=== PATIENT | female | born 1945 | race Two or more races ===

== ENCOUNTER 2025-05-23 09:57 | Observation (INO) | payer MEDICAID, SELFPAY ==
[2025-05-23] VITALS (10 sets, daily range): BP systolic 130–181; BP diastolic 73–101; PULSE 65–87; RESP 16–97; TEMP 36.4–37.1; O2SAT 96–98; BMI 14.7
--- NOTE | 2025-05-23 10:01 | EKG_ITS ---
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
--- NOTE | 2025-05-23 10:22 | XR_ITS ---
Examination: PA lateral chest 2 views Technique: Upright PA lateral chest 2 views Date and time: May 23, 2025, 10:51 AM, comparison April 10, 2022 Indications: Chest pain shortness of breath beginning 3 days ago. Findings: Interval extensive bilateral interstitial alveolar lung opacities The left ventricle is mildly enlarged. Ectatic thoracic aorta. Prominent osteopenia Impression: Interval extensive bilateral interstitial alveolar lung opacities, differential would include pneumonia, underlying pulmonary metastatic disease not excluded Consider elective CT chest post intravenous contrast follow-up
--- NOTE | 2025-05-23 10:23 | EDRME_ITS ---
Rapid Medical Screening Exam E Arrival date/time: 05/23/25 09:57 Chief Complaint: Chest Pain Time Seen by Provider: 05/23/25 10:13 Vital signs: Vital Signs Temperature 97.7 F 05/23/25 10:06 Pulse Rate 80 05/23/25 10:06 Respiratory Rate 19 05/23/25 10:06 Blood Pressure 143/92 H 05/23/25 10:06 Pulse Oximetry (%) 96 05/23/25 10:06 Oxygen Delivery Method Room Air 05/23/25 10:06 [facility] Narrative: 80-year-old female here for chest pain that began a few days ago. States 3 days ago was at [facility] emergency department but states they did not keep her. Her chest pain has not gone away. Describes her chest pain as radiating to her back. Does have a history of diabetes. No history of [place] or stroke in the past.
--- NOTE | 2025-05-23 11:02 | EDNOTE_ITS ---
<Statement entered by Taylor Edward MD - 05/23/25 14:57> I, Taylor Edward MD, have reviewed the history, exam, and assessment of the patient. I have evaluated the patient independently and agree with the plan of care documented by [ ]. All diagnostic studies were reviewed and discussed. I confirm the diagnosis as documented by the Resident. I was present during the Medical Decision Making for this patient. The patient's plan of care was created between myself and the Resident and consistent with our discussion of the patient's case. ED Chest Pain RME/HPI General Chief Complaint: Chest Pain Stated Complaint: PAIN ON THE HEART Time Seen by Provider: 05/23/25 10:13 Arrival date/time: 05/23/25 09:57 RME / HPI RME / HPI narrative: 80-year-old female here for chest pain that began a few days ago. States 3 days ago was at [facility] emergency department but states they did not keep her. Her chest pain has not gone away. Describes her chest pain as radiating to her back. Does have a history of diabetes. No history of [place] or stroke in the past. Ms. Kirkland is a 80-year-old female with past medical history of hypertension hyperlipidemia and diabetes mellitus who presented to [facility] emergency department on May 23, 2025 with a chief complaint of chest pain. Patient on evaluation in the ED reported that her pain is mostly localized on the left side of her chest, more on the back and describes it as lung pain, patient's movements stable, O2 sat greater than 92 on room air. She does complain of some shortness of breath, reports that it is hard for her to breathe, denies any orthopnea, PND and leg swelling. Patient is cachectic and frail, on review of chest x-ray from 2021 shows deviation of trachea due to suspicion of enlarged right thyroid lobe, 18 mm nodule in right upper lobe, patient's family reported that they never followed up for the findings. Patient otherwise denies any other symptoms like headache, abdominal pain, nausea, vomiting, diarrhea and constipation Related Data Previous Rx's ?Medication ?Instructions ?Recorded magnesium citrate 150 ml PO QDAY PRN constipat ion 04/10/22 #296 mL Allergies Allergy/AdvReac Type Severity Reaction Status Date / Time No Known Allergies Allergy Verified 05/23/25 10:00 Review of Systems Review of Systems Systems Reviewed: All systems reviewed, normal except as documented Past Medical History Past Medical History Comments PMH COMMENT: PMH: As Above PSHx: Denies Allergies: No known drug and food allergies Social history: Positive for wooden stove exposure in [place] -Smoking: Denies -Alcohol Use: Denies -Illicit Drug Use: Denies -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 Cachectic elderly and frail. HEENT: Normocephalic, atraumatic, mucous membranes moist. Heart: Regular rate and rhythm, no murmurs. Lungs: Bilateral crackles Abdomen: Soft, nondistended, nontender, positive bowel sounds. ?No guarding or rebound tenderness. Neurologic: Alert and oriented x3, no gross neurological deficit, and patient able to move all 4 extremities. Extremities: No edema. Skin: No rash or ecchymoses. Course Course Course Narrative: EKG reviewed shows sinus rhythm, QTc 397. Chest x-ray shows interval extensive bilateral interstitial alveolar lung opacities CBC shows WBC 5.1, hemoglobin 13.7, hematocrit 40.2, platelet 870 VBG shows pH 7.48, pCO2 33, pO2 127 CMP remarkable for sodium 138, potassium 4.1, bicarb 24.8, GFR greater than 60, corrected calcium 11, lactate 0.9, AST ALT within normal limits, BNP 193, Pro- Loco 0.08 Urinalysis showed 10 RBC negative for bacteria Patient started on IV maintenance fluid for hypercalcemia CTA chest shows marked right thyromegaly displacing the trachea to the left extending substernal multiple right thyroid nodules Right tracheobronchial lymphadenopathy, noncalcified pulmonary nodules 10 mm nodule left upper lobe, 8 mm nodule left upper lobe, 6 mm nodule left upper lobe COPD, diffuse bilateral pneumonia, bronchiectasis in lower lung zones and suspicion of mild heart failure CT soft tissue neck shows markedly enlarged right thyroid lobe extending chase bsternally Patient's PSI port score 102 risk class IV 8.2 to 9.3% mortality recommended hospitalization. Patient given cefepime 2 g x 1 and doxycycline 100 mg x 1 Case discussed with hospitalist team for admission for IV antibiotics for pneumonia and further oncological workup as warranted, hospitalist agrees to admit patient. 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 Q4H START 00 Care 05/23/25 10:34 Active Continuous Pulse Oximetry NOW Care 05/23/25 10:34 Active Decision to Admit X1 Care 05/23/25 13:57 Active EKG (ED ONLY) *Do not use* NOW Care 05/23/25 10:01 Completed Fingerstick [Bedside Blood Glucose] NOW Care 05/23/25 10:33 Active Insert IV NOW Care 05/23/25 10:[address] angio chest Stat Exams 05/23/25 11:[address] soft tissue neck w con Stat Exams 05/23/25 11:39 Completed EKG (ED Only) Stat Exams 05/23/25 10:01 Draft XR chest 2V Stat Exams 05/23/25 10:22 Completed BNP [B-Type Natriuretic Peptide] Stat Lab 05/23/25 11:08 Completed Beta Hydroxybutyrate Stat Lab 05/23/25 11:08 Completed Blood Culture (Lab) Stat Lab 05/23/25 13:09 Received CBC Stat Lab 05/23/25 11:08 Completed CMP [Comprehensive Metabolic Panel] Stat Lab 05/23/25 11:08 Completed Lactic Acid [Lactate (Lactic Acid)] Stat Lab 05/23/25 11:08 Completed Procalcitonin Stat Lab 05/23/25 11:08 Completed Troponin I Stat Lab 05/23/25 11:08 Completed UA, C/S IF [Urinalysis, C/S if Indicated] Stat Lab 05/23/25 12:05 Completed VBG [Venous Blood Gas] Stat Lab 05/23/25 11:08 Completed Aspirin Med 05/23/25 10:22 Discontinued 325 mg PO X1 ONE Cefepime Inj [Maxipime Inj] 2 gm Med 05/23/25 13:56 Active SODIUM CHLORIDE 0.9% (Popper) [Ns 0.9% (P)] 50 ml IV X1 Doxycycline Inj [Vibramycin Inj] 100 mg Med 05/23/25 13:56 Active Sodium Chloride 0.9% (Pop) [NS 0.9% mini bag] 100 ml IV X1 Sodium Chloride 0.9% 1000 ml [Ns] 1,000 ml Med 05/23/25 11:41 Active IV 75 mls/hr Vital Signs Vital signs: Vital Signs Temperature 97.7 F 05/23/25 10:06 Pulse Rate 80 05/23/25 10:06 Respiratory Rate 19 05/23/25 10:06 Blood Pressure 143/92 H 05/23/25 10:06 Pulse Oximetry (%) 96 05/23/25 10:06 Oxygen Delivery Method Room Air 05/23/25 10:06 Chest Pain MDM Narrative MDM Narrative:: # Community Acquired PNA # Thyromegaly, suspicion of malignancy # Hypercalcemia, suspicion of hypercalcemia of malignancy # Severe protein calorie malnutrition, failure to thrive Patient data External records reviewed:: [facility] previous records Clinical information provided by:: patient and family Social determinants that could affect healthcare access:: none Patient has the following chronic illnesses:: Hypertension, hyperlipidemia and diabetes How is presenting disease/condition affected by chronic disease/condition?: exacerbated by Evaluation data The following diagnostics were reviewed and interpreted by me:: lab results, radiology exam(s) and EKG tracing(s) Lab and/or radiology exams considered but not ordered:: None Interpretation Summary: EKG reviewed shows sinus rhythm, QTc 397. Chest x-ray shows interval extensive bilateral interstitial alveolar lung opacities CBC shows WBC 5.1, hemoglobin 13.7, hematocrit 40.2, platelet 870 VBG shows pH 7.48, pCO2 33, pO2 127 CMP remarkable for sodium 138, potassium 4.1, bicarb 24.8, GFR greater than 60, corrected calcium 11, lactate 0.9, AST ALT within normal limits, BNP 193, Pro-Ca l 0.08 Urinalysis showed 10 RBC negative for bacteria Patient started on IV maintenance fluid for hypercalcemia CTA chest shows marked right thyromegaly displacing the trachea to the left extending substernal multiple right thyroid nodules Right tracheobronchial lymphadenopathy, noncalcified pulmonary nodules 10 mm nodule left upper lobe, 8 mm nodule left upper lobe, 6 mm nodule left upper lobe COPD, diffuse bilateral pneumonia, bronchiectasis in lower lung zones and suspicion of mild heart failure CT soft tissue neck shows markedly enlarged right thyroid lobe extending substernally Medications / Prescriptions Medications or Prescriptions considered but not ordered:: None Medication administrations:: Medication Administration History Sodium Chloride (Ns) 1,000 mls @ 75 mls/hr IV .[id number] BRIANA Stop: 06/22/25 11:40 Last Admin: 05/23/25 12:02 Dose: 75 mls/hr Documented By: RACHEL Cefepime HCl 2 gm/ Sodium (Chloride) 50 mls @ 100 mls/hr IV X1 ONE Stop: 05/23/25 14:25 Doxycycline Hyclate 100 mg/ (Sodium Chloride) 100 mls @ 100 mls/hr IV X1 ONE Stop: 05/23/25 14:55 Discontinued Medications Aspirin (Aspirin 325 Mg Tablet) 325 mg PO X1 ONE Stop: 05/23/25 10:23 Last Admin: 05/23/25 10:33 Dose: 325 mg Documented By: TM As Above Consultations Consultation(s) initiated? (list below): No Diagnosis Chest Pain Differential Diagnosis: atypical chest pain, costochondritis and other Most likely diagnosis given after review of the tests above:: Pneumonia Admission Indicated Admission indicated?: indicated Admission Request Was there a request for admission?: Yes Admission Attestation Admission request attestation: Discussed case with Dr Elmore from Hospitalist service regarding admission. Discussed patients ED course, exam findings, labs, and radiology results. The Hospitalist agrees to accept the patient for admission. Disposition Plan Disposition Plan: Admit Discharge Plan Plan Patient Disposition: Admit Acute Care w/in Hospital Prescriptions/Referrals Prescriptions/Med Rec: No Action magnesium citrate Solution 150 ml PO QDAY PRN (Reason: constipation) Qty: 296 0RF Referrals: No Primary/Family,Physician [Primary Care Provider] - In 1 week Problem List Clinical Impression: PNA (pneumonia) Patient/Caregiver Discharge Instructions Print Language: [place] Stand Alone Forms: [facility] Award Info., Patient Portal Info Letter
[2025-05-23 11:13] LABS: Lactate (Lactic Acid) 0.9 mMol/L (0.4-2.0)
[2025-05-23 11:14] LABS: Base Excess, Venous 2 (-3-3); O2 Saturation, Venous 100 % (96-97); PCO2, Venous 33 mmHg (36-56); PO2, Venous 127 mmHg (15-58); pH, Venous 7.48 (7.33-7.66)
[2025-05-23 11:18] LABS: Beta Hydroxybutyrate 0.2 mmol/L (<0.6)
[2025-05-23 11:24] LABS: Basophils # (Auto) 0.0 Thou/mm3 (0.0-0.2); Basophils % (Auto) 0 % (0-2.5); Eosinophils # (Auto) 0.3 Thou/mm3 (0.0-0.5); Eosinophils % (Auto) 5 % (0-10); Hematocrit 40.2 % (36.0-46.0); Hemoglobin 13.7 g/dL (12.0-16.0); Immature Granulocytes Auto 0.01 Thou/mm3 (0.00-0.00); Lymphocytes # (Auto) 1.4 Thou/mm3 (1.0-4.8); Lymphocytes % (Auto) 27 % (10-50); Mean Corpuscular HGB Conc 34.1 g/dl (31.0-37.0); Mean Corpuscular Hemoglobin 29.3 pg (25.0-35.0); Mean Corpuscular Volume 86 fL (80-100); Monocytes # (Auto) 0.4 Thou/mm3 (0.0-0.8); Monocytes % (Auto) 8 % (0-12); Neutrophils # (Auto) 3.0 Thou/mm3 (1.8-7.7); Neutrophils % (Auto) 60 % (37-80); Nucleated Red Blood Cell # 0.00 Thou/mm3 (0.00-0.00); Nucleated Red Blood Cell % 0 /100 WBC (0); Platelet Count 170 Thou/mm3 (140-440); RDW Standard Deviation 52.3 fL (36.4-46.3); Red Blood Count 4.68 Miln/mm3 (4.00-5.20); White Blood Count 5.1 Thou/mm3 (3.6-11.0)
[2025-05-23 11:38] LABS: Alanine Aminotransferase 12 U/L (10-49); Albumin, Serum 4.2 gm/dL (3.4-4.8); Albumin/Globulin Ratio 1.5 (1.2-2.2); Alkaline Phosphatase 136 U/L (46-116); Anion Gap 10 (7-16); Aspartate Amino Transferase 26 U/L (0-34); BUN/Creatinine Ratio 28 Ratio (12-20); Bilirubin,Total 0.7 mg/dL (0.3-1.2); Blood Urea Nitrogen 17 mg/dL (9-23); Calcium 11.0 mg/dL (8.3-10.6); Calcium (Corrected) 11.0 mg/dL (8.5-10.1); Carbon Dioxide 24.8 mMol/L (20.0-31.0); Chloride 103 mMol/L (98-107); Creatinine (Component) 0.6 mg/dL (0.6-1.3); Estimated Creatinine Clearance 41.7 mL/min (>60); Globulin 2.8 gm/dL (2.3-3.5); Glucose 94 mg/dL (74-106); Osmolality,Calculated 277 (275-295); Potassium 4.1 mMol/L (3.4-5.1); Sodium 138 mMol/L (136-145); Total Protein 7.0 gm/dL (5.7-8.2); Troponin I < 0.020 ng/mL (0.0-0.045); eGFR > 60 See Note
--- NOTE | 2025-05-23 11:39 | XR_ITS ---
Examination: CT soft tissue neck, with intravenous contrast. 2-D coronal reconstructions. 2-D sagittal reconstructions. Date and time of exam :May 23, 2025, 1233 hrs. Indications: Again pain this week. CTDI: vol (mGy):16.6 DLP: (mGycm):219 Technique: 1.25 mm axial sections of the neck of the obtained. Coronal and sagittal reconstructions have been obtained. Intravenous contrast administered 40 cc Isovue-370. Low dose protocols were performed. One or more of the following dose reduction techniques were used; automated exposure control, adjustment of the mA and/or KV according to patient size, use of iterative reconstruction technique. Findings: The optic globes are intact 19 mm retention cyst left maxillary antrum Symmetrical nasopharynx oropharynx There is prominent patient motion which severely degrades image quality,. The larynx is severely distorted Markedly enlarged right thyroid lobe is extending substernal with multiple poorly defined nodules, the thyroid displacing the trachea to the left Normal epiglottis Impression: Prominent patient motion severely degrades scan image quality Markedly enlarged right thyroid lobe extending substernal with multiple poorly defined nodules Recommend dedicated thyroid sonography follow-up
--- NOTE | 2025-05-23 11:39 | XR_ITS ---
Examination: CTA chest with intravenous contrast 2-D reconstructions 3-D reconstructions, vascular Date and time of exam: May 23, 2025, 1233 hrs. Indications: Chest pain congestion beginning 4 days ago CTDI: vol (mGy) 9.08 DLP: (mGycm) 225 Technique: Multiple axial sections of the thorax have been obtained. 3 mm slice thickness, from below the hemidiaphragms to above the apices of the lungs. Mediastinal and lung density settings have been obtained. 2-D sagittal and coronal reconstructions. 3-D angiographic renderings, 3-D volume renderings, 3D post processing, vascular maximum intensity projections obtained. Contrast administered is 70 cc Isovue-370 intravenous. Low dose protocols were performed. One or more of the following dose reduction techniques were used; automated exposure control, adjustment of the mA and/or KV according to patient size, use of iterative reconstruction technique. Findings: Markedly enlarged right thyroid lobe extending substernal, displacing the trachea to the left, multiple right thyroid nodules No thoracic aortic aneurysm dilatation or dissection Pulmonary artery segments are not enlarged Pulmonary artery opacification is poor in segmental branches, no gross pulmonary artery filling defects Mild enlargement cardiac contour Right tracheobronchial lymphadenopathy, axial image 69, measuring 24 mm Numerous collateral venous channels in the right arm and right axilla COPD with severe areas of airspace destruction 10 mm nodule left upper lobe 8mm nodule left upper lobe 6 mm nodule left upper lobe Interstitial nodular disease throughout the lungs consistent with pneumonia with dilated bronchi in the lower lung zones and significant vascular congestion No visualized liver or splenic lesion Kidneys partially visualized no hydronephrosis Moderate osteopenia Impression: Marked right thyromegaly, displacing the trachea to the left, extending substernal, multiple right thyroid nodules, recommend dedicated thyroid sonography follow-up Pulmonary artery opacification is poor in segmental branches, no gross pulmonary artery filling defects Right tracheobronchial lymphadenopathy, 24 mm, noncalcified pulmonary nodules as above, follow-up is needed COPD Diffuse bilateral pneumonia Bronchiectasis in the lower lung zones Suspicious for mild associated heart failure
[2025-05-23] MEDS: SODIUM CHLORIDE 0.9% 1000 ML 1,000 ML 75 ML IV (12:02)
[2025-05-23 12:06] LABS: B-Type Natriuretic Peptide 193 pg/mL (0-100)
[2025-05-23 12:22] LABS: Collection Type, Urine Clean Catch
[2025-05-23 12:27] LABS: Bilirubin,Urine Negative (Negative); Blood,Urine Negative (Negative); Clarity,Urine Clear (Clear/Hazy); Color,Urine Lt-Yellow (Lt Yel-Yel); Culture Indicated,Urine Not Indicated; Glucose, Urine Negative (Negative); Ketones,Urine Negative (Negative); Leukocyte Esterase,Urine Negative (Negative); Nitrite,Urine Negative (Negative); PH,Urine 7.0 (5.0-7.0); Protein,Urine Negative (Neg - Trace); RBC,Urine 10 /hpf (0-3); Specific Gravity,Urine 1.012 (1.001-1.035); Squamous Epithelial Cell,Urine < 1 /hpf (0-5); Urobilinogen,Urine Negative mg/dL (0.0-1.0); WBC,Urine 1 /hpf (0-5)
[2025-05-23 12:41] LABS: Procalcitonin 0.08 ng/ml (0.0-0.49)
[2025-05-23] MEDS: CEFEPIME INJ 2 GM in SODIUM CHLORIDE 0.9% (Popper) 50 ML IV (14:36)
[2025-05-23] MEDS: DOXYCYCLINE INJ 100 MG in SODIUM CHLORIDE 0.9% (POP) 100 ML IV (14:37)
--- NOTE | 2025-05-23 15:38 | ESHP_ITS ---
Documentation for date of: 05/23/25 [facility] History of Present Illness Chief complaint: chest pain History of present illness: Kelsey Kirkland is 80 yr female with PMH of HTN and non insulin dependent T2DM presenting to [facility] on 05/23/25 with cheif complaint of chest pain. Her son was at bedside who assisted with history. Chest pain has been on and off going since the past couple months. Stated that today was the worst therefore family decided to bring in patient for further evaluation. She has been mostly residing in [place] and also had workup done for chest pain which was negative in the past while residing in [place]. Chest pain is midsternal, radiating to the back, pain 7/10, unable to describe type of pain, nothing to was taken [id number] for relief of the pain. She denies any shortness of breath, palpitations, diaphoresis. Does have epigastric pain with no diarrhea. Per family, patient does not have loss of appetite stating that she is eating well at her baseline. However patient does state that she is experiencing dysphagia. Denies any significant weight loss. In ED,Initial BP 143/92 however increased to 175/101. Other vitals are stable and she is saturating well on room air. Labs mostly unremarkable. Notable for mild hypercalcemia 11.0. She was started on fluids. EKG normal sinus rhythm, no acute ST changes, troponins negative. Chest x-ray showed significant pneumonia pattern bilaterally with infiltrates. CTA chest also showing diffuse bilateral pneumonia, bronchiectasis, thyromegaly with multiple nodules (10 mm, 8 mm, 6mm left upper lobe), tracheal deviation to the left. Follow up with CT of soft tissue neck showed nodules as well. She was given aspirin 325mg x1, NS maintainence fluids, cefepime x1, doxycyline x1. Admit for ACS r/o, workup of dysphagia, HTN urgency. PMH: as noted above PSH: son denied any FamHx: no CAD, no WA, no stroke. Daughter has history of unknown cancer. Social: Lives mostly in [place], no smoking, no drinking. Meds: Metformin and unknown anti hypertensive medications. Review of Systems Review of Systems Systems Reviewed: All systems reviewed, normal except as documented Exam Vital Signs Temp Pulse Resp BP Pulse Ox O2 Del Method 98.7 F 68 18 175/101 H 98 Room Air 05/23/25 14:04 05/23/25 14:04 05/23/25 14:04 05/23/25 14:04 05/23/25 14:04 05/23/25 14:04 Narrative Exam General: Elderly female, malnourished, No acute distress, cooperative HEENT: NCAT, No JVD noted. Mucosa moist. Pupils are equal and reactive to light bilaterally. Thyroid fullness appreciated, difficult to delineate. Cardiovascular: Normal S1 and S2. Regular rate and rhythm. Chest wall thin with visible rib outlines. Respiratory: Lungs are clear to auscultation bilaterally. No wheezing or crackles heard. Abdomen: Soft, nontender, not distended, normal bowel sounds. Skin: Warm to touch, dry, no rashes noted Musculoskeletal: No gross injuries. Able to move all 4 extremities. No pitting edema Neuro: Alert and oriented x3. No focal neuro deficits. Psych: Normal affect and mood Results: Labs 05/24/25 04:39 05/24/25 04:39 Labs: Short CBC 05/23/25 Range/Units 11:08 WBC 5.1 (3.6-11.0) Thou/mm3 Hgb 13.7 (12.0-16.0) g/dL Hct 40.2 (36.0-46.0) % Plt Count 170 (140-440) Thou/mm3 BMP 05/23/25 11:08 Sodium 138 Potassium 4.1 Chloride 103 Carbon Dioxide 24.8 BUN 17 Creatinine 0.6 Glucose 94 Calcium 11.0 H Cardiac Enzymes 05/23/25 Range/Units 11:08 Troponin I < 0.020 (0.0-0.045) ng/mL Liver Function 05/23/25 Range/Units 11:08 Total Bilirubin 0.7 (0.3-1.2) mg/dL AST 26 (0-34) U/L ALT 12 (10-49) U/L Alkaline Phosphatase 136 H (46-116) U/L Albumin 4.2 (3.4-4.8) gm/dL Urine 05/23/25 Range/Units 12:05 Urine Color Lt-Yellow (Lt Yel-Yel) Urine Clarity Clear (Clear/Hazy) Urine pH 7.0 (5.0-7.0) Ur Specific [place] 1.012 (1.001-1.035) Urine Protein Negative (Neg - Trace) Urine Glucose (UA) Negative (Negative) ABG Interpretation ABG results: 05/23/25 11:08 VBG pH 7.48 VBG pCO2 33 L VBG pO2 127 H VBG Base Excess 2 Quality Measures Quality Measures none Advance care planning discussed with:: patient and child Medications Home Medications and Allergies Home Medications ?Medication ?Instructions ?Recorded ?Confirmed ?Type telmisartan 40 mg tablet (Micardis) 40 mg PO QDAY 05/1105/23/25 History Allergies Allergy/AdvReac Type Severity Reaction Status Date / Time No Known Allergies Allergy Verified 05/23/25 10:00 Visit Medications Acetaminophen (Acetaminophen 325 Mg Tablet) 650 mg PO Q6H PRN PRN Reason: Fever >100.1 or pain Stop: 06/22/25 15:23 Dextrose (Dextrose 50%-Water Inj 50 Ml Syringe) 25 ml IV Q15MIN PRN PRN Reason: BG 50-70 responsive npo pt Stop: 06/22/25 15:29 Dextrose (Dextrose 50%-Water Inj 50 Ml Syringe) 50 ml IV Q15MIN PRN PRN Reason: BG <50 OR BG <70 & pt unresponsive Stop: 06/22/25 15:29 Glucagon (Glucagon Inj 1 Mg Vial) 1 mg IM Q15MIN PRN PRN Reason: BG <70, and no IV access Heparin Sodium (Porcine) (Heparin Sod Inj 5000 Unit/Ml Vial) 5,000 unit SC BID [facility] Stop: 06/06/25 20:59 Hydralazine HCl (Hydralazine Inj 20 Mg/Ml Vial) 10 mg IVP Q4HR PRN PRN Reason: SBP>160 Stop: 06/22/25 15:32 Sodium Chloride (Ns) 1,000 mls @ 75 mls/hr IV .[id number] [facility] Stop: 05/24/25 01:00 Last Admin: 05/23/25 12:02 Dose: 75 mls/hr Ceftriaxone Sodium/Dextrose (Rocephin/D5w 1gm Iv Premix) 1 gm in 50 mls @ 100 mls/hr IV QDAY [facility] Stop: 05/28/25 08:59 Insulin Human Lispro (Insulin Lispro (Admelog) 1 Unit/0.01 Ml Unit) 0 unit SC Q6HR [facility]; Protocol Stop: 06/22/25 17:59 Ondansetron HCl (Ondansetron Inj 2 Mg/Ml Inj 2 Ml) 4 mg IVP Q6H PRN; Protocol PRN Reason: NAUSEA OR VOMITING Stop: 06/22/25 15:23 Pantoprazole Sodium (Pantoprazole Inj 40 Mg Vial) 40 mg IVP QDAY BRIANA Stop: 06/22/25 15:29 Sennosides (Senna Tablet) 1 tab PO QDAY PRN; Protocol PRN Reason: constipation Stop: 06/22/25 15:23 Discontinued Medications Aspirin (Aspirin 325 Mg Tablet) 325 mg PO X1 ONE Stop: 05/23/25 10:23 Last Admin: 05/23/25 10:33 Dose: 325 mg Cefepime HCl 2 gm/ Sodium (Chloride) 50 mls @ 100 mls/hr IV X1 ONE Stop: 05/23/25 14:25 Last Admin: 05/23/25 14:36 Dose: 100 mls/hr Doxycycline Hyclate 100 mg/ (Sodium Chloride) 100 mls @ 100 mls/hr IV X1 ONE Stop: 05/23/25 14:55 Last Admin: 05/23/25 14:37 Dose: 100 mls/hr Assessment & Plan Plan Kelsey Kirkland is 80 yr female with PMH of HTN and non insulin dependent T2DM presenting to [facility] on 05/23/25 with cheif complaint of chest pain. Her son was at bedside who assisted with history. Chest pain has been on and off going since the past couple months. Also endorses dysphagia. Admit for ACS r/o, workup of dysphagia, HTN urgency. #ACS rule out In ED,Initial BP 143/92 however increased to 175/101. Other vitals are stable and she is saturating well on room air. EKG normal sinus rhythm, no acute ST changes, troponins negative. CXR extensive bilateral interstitial alveolar lung opacities. Given aspirin 325mg in ED. ? Continue aspirin 81 mg ? Trend troponins every 6 hours -IV morphine for pain #Hypertensive urgency #Hypertension Initial BP 143/92 however increased to 175/101. No signs of end organ damage. She has history of hypertension. Med rec is pending. -IV hydralazine 10 mg q4hr for SBP greater than 150. ? Monitor blood pressure ? Gradual reduction more than 15% as patient had presented with hypertensive urgency. - Will convert to p.o. agents once she is evaluated by speech #CAP Chest x-ray showed significant pneumonia pattern bilaterally with infiltrates. CTA chest also showing diffuse bilateral pneumonia. Currently stable on room air. No coughing. PSI score 72 (in patient or outpatient tx is okay). -IV ceftriaxone 1 g daily ( 05/23-) -blood cultures pending -duonebs PRN -oxygen PRN #Dysphagia 2/2 #Thyromegaly #BMI 19 or less, adult #Severe malnutrition Per family, patient does not have loss of appetite stating that she is eating well at her baseline. However patient does state that she is experiencing dysphagia. Possible that thyroid is also compressing on esphagus. Tracheal deviation noted on CTA chest and CXR. Patient's son stated that they were unaware of thyromegaly finding in the past. They would be interested in pursuing further workup including biopsy if needed. -speech language eval pending -box shook patcher referal -TSH pending -PTH pending -NPO until evaluation -IV fluids as below #Hypercalcemia Ca 11.0 on admission. Ddx: hyperparathyroidsim, Vit D intake. -NS maintainence fluids 75 cc/hr -repeat CMP #Non insulin dependent T2DM Glucose 94 on admission. She takes metformin at home that she got from [place]. (dose?) No A1c on file. -Bedside blood glucose checks q6hr while NPO -Insulin lispro sliding scale -Consulted box shook patcher -A1c pending Health maintenance: Dispo: tele for ACS rule out/dysphagia workup FEN: NPO pending swallow eval DVT prophylaxis: Subcu heparin BID CODE STATUS: Full code The patient's management plan was discussed with my attending physician Dr. Forte. Gissel Elmore, PGY-2 Attending Provider Attestation/Addendum I have discussed and was present for the essential components of the history, physical examination, diagnosis, and treatment plan with the resident. I agree with the patient's care as documented by the resident and amended herein by me. Sinan Forte DO. Although this document has been carefully reviewed, there may still be some phonetic and other typographical errors. These errors are purely grammatical due to imperfections in the software program and should not be construed in any way to compromise the substance of the patient's medical care during this visit.
[2025-05-23 16:10] LABS: Cardiac Risk Estimate 2.5 RATIO (3.7-5.6); Cholesterol 184 mg/dL (132-200); Free T4 (Free Thyroxine) 0.97 ng/dL (0.89-1.76); HDL Cholesterol 75 mg/dL (40-60); LDL Cholesterol,Calculated 91 mg/dL (0-130); Thyroid Stimulating Hormone 1.93 uIU/mL (0.55-4.78); Triglycerides 92 mg/dL (30-150)
[2025-05-23 16:48] LABS: Troponin I < 0.020 ng/mL (0.0-0.045)
[2025-05-23] MEDS: hydrALAZINE INJ 20 MG/ML VIAL 10 MG IVP (18:07)
[2025-05-23] MEDS: HEPARIN SOD INJ 5000 UNIT/ML VIAL SC (21:12)
[2025-05-23 22:51] LABS: Troponin I < 0.020 ng/mL (0.0-0.045)
[2025-05-24] VITALS: BP 110/65; PULSE 78; PULSE 81; RESP 19; TEMP 36.7; O2SAT 96
[2025-05-24] MEDS: INSULIN LISPRO (AdmeLOG) 1 UNIT/0.01 ML UNIT SC (00:35)
[2025-05-24 02:27] VITALS: PULSE 74; RESP 20; RESP 94
[2025-05-24 04:00] VITALS: BP 136/71; PULSE 66; PULSE 68; RESP 18; TEMP 37; O2SAT 96
[2025-05-24 05:32] LABS: Basophils # (Auto) 0.0 Thou/mm3 (0.0-0.2); Basophils % (Auto) 1 % (0-2.5); Eosinophils # (Auto) 0.1 Thou/mm3 (0.0-0.5); Eosinophils % (Auto) 3 % (0-10); Hematocrit 38.5 % (36.0-46.0); Hemoglobin 12.8 g/dL (12.0-16.0); Immature Granulocytes Auto 0.01 Thou/mm3 (0.00-0.00); Lymphocytes # (Auto) 1.3 Thou/mm3 (1.0-4.8); Lymphocytes % (Auto) 28 % (10-50); Mean Corpuscular HGB Conc 33.2 g/dl (31.0-37.0); Mean Corpuscular Hemoglobin 29.3 pg (25.0-35.0); Mean Corpuscular Volume 88 fL (80-100); Monocytes # (Auto) 0.6 Thou/mm3 (0.0-0.8); Monocytes % (Auto) 12 % (0-12); Neutrophils # (Auto) 2.5 Thou/mm3 (1.8-7.7); Neutrophils % (Auto) 55 % (37-80); Nucleated Red Blood Cell # 0.00 Thou/mm3 (0.00-0.00); Nucleated Red Blood Cell % 0 /100 WBC (0); Platelet Count 152 Thou/mm3 (140-440); RDW Standard Deviation 55.3 fL (36.4-46.3); Red Blood Count 4.37 Miln/mm3 (4.00-5.20); White Blood Count 4.4 Thou/mm3 (3.6-11.0)
[2025-05-24 06:00] VITALS: BMI 14.7
[2025-05-24 06:03] LABS: Glucose Estimated Average 108 mg/dL (80-131); Hemoglobin A1C 5.4 % Hgb (4.8-6.0)
[2025-05-24 06:26] LABS: Alanine Aminotransferase 10 U/L (10-49); Albumin, Serum 3.7 gm/dL (3.4-4.8); Albumin/Globulin Ratio 1.4 (1.2-2.2); Alkaline Phosphatase 121 U/L (46-116); Anion Gap 8 (7-16); Aspartate Amino Transferase 22 U/L (0-34); BUN/Creatinine Ratio 32 Ratio (12-20); Bilirubin,Total 0.6 mg/dL (0.3-1.2); Blood Urea Nitrogen 19 mg/dL (9-23); Calcium 11.0 mg/dL (8.3-10.6); Calcium (Corrected) 11.2 mg/dL (8.5-10.1); Carbon Dioxide 25.9 mMol/L (20.0-31.0); Chloride 106 mMol/L (98-107); Creatinine (Component) 0.6 mg/dL (0.6-1.3); Estimated Creatinine Clearance 41.7 mL/min (>60); Globulin 2.6 gm/dL (2.3-3.5); Glucose 75 mg/dL (74-106); Magnesium 1.8 mg/dL (1.6-2.6); Osmolality,Calculated 280 (275-295); Phosphorous 3.4 mg/dL (2.4-5.1); Potassium 4.0 mMol/L (3.4-5.1); Sodium 140 mMol/L (136-145); Thyroid Stimulating Hormone 1.79 uIU/mL (0.55-4.78); Total Protein 6.3 gm/dL (5.7-8.2); eGFR > 60 See Note
--- NOTE | 2025-05-24 07:21 | XR_ITS ---
Examination: Thyroid sonography complete Technique: Grayscale sonographic images thyroid lobes Indications: Large right thyroid with multiple nodules on CT examination 05/23/2025, difficulty swallowing this week Date and time: May 24, 2025, 10:00 AM Findings: Right thyroid 5.8 cm Upper pole nodule 2.7 x 2.5 cm Lower pole nodule 5.5 x 4.2 x 4.3 cm Left thyroid 3.0 cm No thyroid nodules Impression: 2 large vascular right thyroid nodules, consider ultrasound-guided fine-needle aspiration of both nodules
--- NOTE | 2025-05-24 07:36 | PD.RESPRO ---
Documentation for date of: 05/24/25 Exam Vital Signs Temp Pulse Resp BP Pulse Ox O2 Del Method 98.6 F 68 18 136/71 H 96 Room Air 05/24/25 04:00 05/24/25 04:00 05/24/25 04:00 05/24/25 04:00 05/24/25 04:00 05/24/25 04:00 Objective Labs 05/24/25 04:39 05/24/25 04:39 Labs: Laboratory Results - last 24 hr 05/23/25 05/23/25 05/23/25 11:08 12:05 16:23 WBC 5.1 RBC 4.68 Hgb 13.7 Hct 40.2 MCV 86 MCH 29.3 MCHC 34.1 RDW Std Deviation 52.3 H Plt Count 170 Neut % (Auto) 60 Lymph % (Auto) 27 [place] % (Auto) 8 Eos % (Auto) 5 Baso % (Auto) 0 Neut # (Auto) 3.0 Lymph # (Auto) 1.4 [place] # (Auto) 0.4 Eos # (Auto) 0.3 Baso # (Auto) 0.0 Immature Gran # (Auto) 0.01 H Absolute Nucleated RBC 0.00 Immature Gran % 0 Nucleated RBC % 0 VBG pH 7.48 VBG pCO2 33 L VBG pO2 127 H VBG O2 Sat (Anna) 100 H VBG Base Excess 2 Sodium 138 Potassium 4.1 Chloride 103 Carbon Dioxide 24.8 Anion Gap 10 BUN 17 Creatinine 0.6 Estim Creat Clear Calc 41.7 L eGFR > 60 BUN/Creatinine Ratio [address] H Glucose [address] Glu mg/dL Hemoglobin A1c Calculated Osmolality 277 Lactic Acid 0.9 Calcium 11.0 H Corrected Calcium 11.0 H Phosphorus Magnesium Total Bilirubin 0.7 AST 26 ALT 12 Alkaline Phosphatase 136 H Troponin I < 0.020 < 0.020 B-Natriuretic Peptide 193 H Total Protein 7.0 Albumin 4.2 Globulin 2.8 Albumin/Globulin Ratio 1.5 Triglycerides 92 Cholesterol 184 LDL Cholesterol, Calc 91 HDL Cholesterol 75 H Cholesterol/HDL Ratio 2.5 L Beta-Hydroxybutyrate/Acetoacetate 0.2 Procalcitonin 0.08 TSH 1.93 Free T4 0.97 Ur Collection Type Clean Catch Urine Color Lt-Yellow Urine Clarity Clear Urine pH 7.0 Ur Specific [place] 1.012 Urine Protein Negative Urine Glucose (UA) Negative Urine Ketones Negative Urine Blood Negative Urine Nitrite Negative Urine Bilirubin Negative Urine Urobilinogen (Auto) Negative Ur Leukocyte Esterase Negative Urine RBC 10 H Urine WBC 1 Ur Squamous Epith Cells < 1 Urine Bacteria None Ur Culture Indicated? Not Indicated 05/23/25 05/24/25 22:30 04:39 WBC 4.4 RBC 4.37 Hgb 12.8 Hct 38.5 MCV 88 MCH 29.3 MCHC 33.2 RDW Std Deviation 55.3 H Plt Count 152 Neut % (Auto) 55 Lymph % (Auto) 28 [place] % (Auto) 12 Eos % (Auto) 3 Baso % (Auto) 1 Neut # (Auto) 2.5 Lymph # (Auto) 1.3 [place] # (Auto) 0.6 Eos # (Auto) 0.1 Baso # (Auto) 0.0 Immature Gran # (Auto) 0.01 H Absolute Nucleated RBC 0.00 Immature Gran % 0 Nucleated RBC % 0 VBG pH VBG pCO2 VBG pO2 VBG O2 Sat (Anna) VBG Base Excess Sodium 140 Potassium 4.0 Chloride 106 Carbon Dioxide 25.9 Anion Gap 8 BUN 19 Creatinine 0.6 Estim Creat Clear Calc 41.7 L eGFR > 60 BUN/Creatinine Ratio 32 H Glucose [address] Glu mg/dL 108 Hemoglobin A1c 5.4 Calculated Osmolality 280 Lactic Acid Calcium 11.0 H Corrected Calcium 11.2 H Phosphorus 3.4 Magnesium 1.8 Total Bilirubin 0.6 AST 22 ALT 10 Alkaline Phosphatase 121 H Troponin I < 0.020 B-Natriuretic Peptide Total Protein 6.3 Albumin 3.7 D Globulin 2.6 Albumin/Globulin Ratio 1.4 Triglycerides Cholesterol LDL Cholesterol, Calc HDL Cholesterol Cholesterol/HDL Ratio Beta-Hydroxybutyrate/Acetoacetate Procalcitonin TSH 1.79 Free T4 Ur Collection Type Urine Color Urine Clarity Urine pH Ur Specific [place] Urine Protein Urine Glucose (UA) Urine Ketones Urine Blood Urine Nitrite Urine Bilirubin Urine Urobilinogen (Auto) Ur Leukocyte Esterase Urine RBC Urine WBC Ur Squamous Epith Cells Urine Bacteria Ur Culture Indicated? ABG Interpretation ABG results: 05/23/25 11:08 VBG pH 7.48 VBG pCO2 33 L VBG pO2 127 H VBG Base Excess 2 Quality Measures Quality Measures none Assessment & Plan Assessment Current Active Medications: Generic Name Dose Route Start Last Admin Trade Name Freq PRN Reason Stop Dose Admin Acetaminophen 650 mg 05/23/25 15:24 Acetaminophen 325 Mg Tablet PO 06/22/25 15:23 Q6H PRN Fever >100.1 or pain Dextrose 25 ml 05/23/25 15:30 Dextrose 50%-Water Inj 50 Ml Syringe IV 06/22/25 15:29 Q15MIN PRN BG 50-70 responsive npo pt Dextrose 50 ml 05/23/25 15:30 Dextrose 50%-Water Inj 50 Ml Syringe IV 06/22/25 15:29 Q15MIN PRN BG <50 OR BG <70 & pt unresponsive Glucagon 1 mg 05/23/25 15:30 Glucagon Inj 1 Mg Vial IM Q15MIN PRN BG <70, and no IV access Heparin Sodium (Porcine) 5,000 unit 05/23/25 21:00 05/23/25 21:12 Heparin Sod Inj 5000 Unit/Ml Vial SC 06/06/25 20:59 5,000 unit BID BRIANA Administration Hydralazine HCl 10 mg 05/23/25 15:33 05/23/25 18:07 Hydralazine Inj 20 Mg/Ml Vial IVP 06/22/25 15:32 10 mg Q4HR PRN Administration SBP>160 Ceftriaxone Sodium/Dextrose 1 gm in 50 mls @ 100 mls/hr 05/24/25 09:00 Rocephin/D5w 1gm Iv Premix IV 05/28/25 08:59 QDAY [facility] Magnesium Sulfate 4 gm in 50 mls @ 12.5 mls/hr 05/24/25 07:11 Magnesium Sulfate Ivpb IV 05/24/25 11:10 X1 ONE Sodium Chloride 1,000 mls @ 60 mls/hr 05/24/25 07:22 Ns IV 05/25/25 16:41 .[id number] [facility] Insulin Human Lispro 0 unit 05/23/25 18:00 05/24/25 05:47 Insulin Lispro (Admelog) 1 Unit/0.01 Ml Unit SC 06/22/25 17:59 Not Given Q6HR [facility] Protocol Ondansetron HCl 4 mg 05/23/25 15:24 Ondansetron Inj 2 Mg/Ml Inj 2 Ml IVP 06/22/25 15:23 Q6H PRN NAUSEA OR VOMITING Protocol Pantoprazole Sodium 40 mg 05/23/25 15:30 05/23/25 17:03 Pantoprazole Inj 40 Mg Vial IVP 06/22/25 15:29 40 mg QDAY BRIANA Administration Sennosides 1 tab 05/23/25 15:24 Senna Tablet PO 06/22/25 15:23 QDAY PRN constipation Protocol
[2025-05-24 08:00] VITALS: BP 138/79; PULSE 69; PULSE 82; RESP 17; TEMP 36.4; O2SAT 97
[2025-05-24] MEDS: cefTRIAXone/D5w 1gm IV premix 1 GM/50 ML BAG IV (08:21)
[2025-05-24] MEDS: HEPARIN SOD INJ 5000 UNIT/ML VIAL SC (08:21)
[2025-05-24] MEDS: Magnesium Sulfate 4 GM Ivpb 4 GM/50 ML BAG IV (08:23)
[2025-05-24] MEDS: SODIUM CHLORIDE 0.9% 1000 ML 1,000 ML 60 ML IV (08:23)
--- NOTE | 2025-05-24 10:54 | PC.SS ---
rounding note: Patient to d/c home today. No needs.
--- NOTE | 2025-05-24 11:06 | ESDS_ITS ---
<Statement entered by Gissel Elmore MD - 05/24/25 12:32> Note reviewed, I agree with most of its contents and agree with the patient's care as documented by Dr. Vigil. The patient's management plan was discussed with my attending physician Dr. Forte. Gissel Elmore, PGY-2 Planned Discharge Date 05/24/25 DS: Providers Provider Date of admission: 05/23/25 15:25 Primary care physician: Physician No Primary/Family Admitting Provider: Jared Forte DO Attending Provider on Admission: Jared Forte DO Consults: 05/23/25 15:29 Referral Speech Therapy Routine Comment: dysphagia Instructions: Patient has thyromegaly, tracheal deviation. Esophagus may be compressed 05/23/25 15:44 Referral Registered Dietitian Routine Comment: Instructions: BMI 14.7, swallow eval is pending for dysphagia assessment. Requesting recommendations for diet support. Thank you 05/23/25 16:00 Referral Physical Therapy Routine Comment: Physician Instructions: 05/24/25 08:30 Referral - INSTRUCTIONAL DESIGNER Vehicle Return Associate Routine Comment: swallow eval temo Banda Attending Provider on DC: Yuli Vigil MD Discharging Provider: Yuli Vigil MD DS: Diagnosis Problem List Completed Was Problem List Reviewed/Reconciled?: Yes Hospital Course Hospital Course Hospital course: Admitting Diagnoses: Chest pain, rule out acute coronary syndrome (ACS) Hypertensive urgency Community-acquired pneumonia Dysphagia Thyroid enlargement with nodules Chronic Conditions: Hypertension, 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 Pain was rated 7?8/10. She denied shortness of breath, palpitations, diaphoresis, or bowel changes. She did endorse intermittent epigastric pain and dysphagia, without significant weight loss, though BMI was 14. She had prior wo rkup in [place], reportedly negative. On presentation, blood pressure was elevated to 175/101 mmHg. She was saturating well on room air. Hospital Course Chest pain / ACS rule out: EKG showed normal sinus rhythm without ischemic changes. Serial troponins remained negative. She was given a loading dose of aspirin. Given negative biomarkers and stable course, ACS was ruled out. Hypertensive urgency: Blood pressure improved with supportive care. continue home temisartan for bp Pneumonia: Chest x-ray revealed bilateral pulmonary infiltrates. CTA confirmed diffuse bilateral pneumonia, bronchiectasis, and thyromegaly with tracheal deviation. She was started on IV cefepime and doxycycline, later transitioned to IV ceftriaxone. She improved clinically and was discharged on Augmentin BID x4 days and azithromycin 500 mg daily x3 days to complete antibiotic course. Dysphagia / thyroid findings: Swallow evaluation was performed and she tolerated a mechanical soft dysphagia diet. CT soft tissue of the neck showed enlarged right thyroid lobe with multiple irregular nodules and tracheal deviation. US thyroid 2 large vascular right thyroid nodules, consider ultrasound-guided fine-needle aspiration of both nodules Diabetes mellitus: While inpatient, HbA1c was 5.4%, reflecting overly tight glycemic control for her age and frailty. Metformin was discontinued. Continued monitoring and medication adjustment will be required with her outpatient providers in [place]. Other findings: Labs were notable for mild hypercalcemia (11 mg/dL), which improved with IV fluids. Her nutritional status remains poor (BMI 14), requiring outpatient dietary and nutrition follow-up. Discharge Condition Stable, tolerating diet, no acute chest pain, breathing comfortably on room air. Discharge Medications Augmentin 875-125 PO BID x4 days Azithromycin 500 mg PO daily x3 days continue telmisartan 40 mg po daily STOP taking metformin Follow-Up Primary care: Patient does not have a local PCP; she follows with physicians in [place]. Strongly encouraged to establish local primary care for coordination of care, particularly for diabetes, hypertension, and thyroid follow-up. Endocrinology: outpatient evaluation of thyroid nodules and thyromegaly and vascular nodules , needs fine needle biopsy Nutrition: soft and pureed foods, and continue ensure supplements Patient Education Counseled on completing antibiotics, monitoring for recurrent chest pain, dyspnea, fever, or worsening dysphagia. Advised low-salt diet for blood pressure control, adherence to adjusted diabetes regimen, and importance of establishing ongoing local care. Plan discussed with Dr. Elmore and Dr. Jann Vigil MD PGY1 Time Spent with Patient Time attestation: Total time spent providing and/or coordinating discharge services: Time spent: Greater than 30 minutes Exam Vital Signs Temp Pulse Resp BP Pulse Ox O2 Del Method 97.6 F 69 17 138/79 H 97 Room Air 05/24/25 08:00 05/24/25 08:00 05/24/25 08:00 05/24/25 08:00 05/24/25 08:00 05/24/25 08:00 Narrative Exam General: Elderly female, malnourished and frail , No acute distress, cooperative HEENT: NCAT, No JVD noted. Mucosa moist. Pupils are equal and reactive to light bilaterally. Thyroid fullness appreciated, difficult to delineate. very hard of hearing Cardiovascular: Normal S1 and S2. Regular rate and rhythm. Chest wall thin with visible rib outlines. Respiratory: Lungs with some crackles in bilateral bases Abdomen: Soft, nontender, not distended, normal bowel sounds. Skin: Warm to touch, dry, no rashes noted Musculoskeletal: No gross injuries. Able to move all 4 extremities. No pitting edema extremely frail Neuro: Alert and oriented x3. No focal neuro deficits. Psych: Normal affect and mood Discharge Plan Plan Patient Disposition: HOME (Self Care) Patient condition on transfer: Stable Prescriptions/Referrals Prescriptions/Med Rec: New amoxicillin-pot clavulanate 875-125 mg tablet 1 tab PO BID 4 Days Qty: 8 0RF azithromycin 500 mg tablet 500 mg PO QDAY 3 Days Qty: 3 0RF Continued magnesium citrate Solution 150 ml PO QDAY PRN (Reason: constipation) Qty: 296 0RF telmisartan [Micardis] 40 mg tablet 40 mg PO QDAY Discontinued metformin 850 mg tablet 850 mg PO BIDWMEAL Referrals: Gissel Elmore MD [Resident, Internal Medicine] No Primary/Family,Physician [Primary Care Provider] Patient/Caregiver Discharge Instructions Other Discharge Activity Instructions:: Stop taking metformin. Your glucose was normal and not indicating that you are diabetic now. Continue taking blood pressure medication. Complete antibiotic course as prescribed as treatment of pneumonia. Resume diet with supplement such as Ensure. Follow up with PCP for results of thyroid ultrasound. Education Materials: Chest and Lung Problems, Common Thyroid Problems, ED Pneumonia (Adult) Print Language: Portuguese Stand Alone Forms: [facility] Award Info., Patient Portal Info Letter, Work/Release Restrictions Discharge Order Discharge Orders: Discharge (Routine); Ordered 05/24/25 Ordered By: Gissel Elmore Quality Discharge Quality Measures VTE prophylaxis Attestestation Attestation I have discussed and was present for the essential components of the discharge history, physical examination, diagnosis, and discharge treatment plan with the resident. I agree with the patient's discharge care as documented by the resident and amended herein by me. Sinan Forte DO. The patient understood all discharge instructions, all questions were answered satisfactorily. The patient was instructed to return to the Emergency Department is symptoms worsened or persisted. ACS ruled out, patient was stable for discharge, she will need close follow-up and to establish care with a primary care provider here which her daughter states she will. Patient needs further workup for this large thyroid mass which may be malignant. Most likely will need an FNA in the outpatient setting. The patient is able to tolerate diet without issue per speech therapy recommendations, dysphagia was a concern considering thyroid mass with tracheal deviation. We will discontinue the patient's metformin which she gets from [place] at this time, A1c WNL. Patient's family was at bedside to include her son and [id number], all questions answered satisfactorily. Although this document has been carefully reviewed, there may still be some phonetic and other typographical errors. These errors are purely grammatical due to imperfections in the software program and should not be construed in any way to compromise the substance of the patient's medical care during this visit.
[2025-05-24 12:00] VITALS: BP 122/71; PULSE 73; PULSE 75; RESP 22; TEMP 36.8; O2SAT 97
[2025-05-24 19:54] LABS: Parathyroid Hormone Intact 65.1 pg/ml (18.5-88.0)
== END 2025-05-24 12:43 | disposition home or self-care (01) ==
LOC: SERX 14:18 → S2NX 05-24 09:42 → SERHOLD 05-25 11:31
PROVIDERS: Physician Assistant; Admitting Provider Student in an Organized Health Care Education/Training Program; Emergency Provider Emergency Medicine; Visit Provider Student in an Organized Health Care Education/Training Program
DX: J18.9 Pneumonia, unspecified organism (principal); R13.10 Dysphagia, unspecified; E11.9 Type 2 diabetes mellitus without complications; E83.52 Hypercalcemia; I16.0 Hypertensive urgency; I10 Essential (primary) hypertension; E01.0 Iodine-deficiency related diffuse (endemic) goiter; E43 Unspecified severe protein-calorie malnutrition; Z68.1 Body mass index [BMI] 19.9 or less, adult; E78.5 Hyperlipidemia, unspecified; J44.0 Chronic obstructive pulmonary disease with (acute) lower respiratory infection; J47.0 Bronchiectasis with acute lower respiratory infection
CPT/HCPCS: 36415; 70491; 71046; 71275; 76536; 80053; 80061; 81001; 82010; 82803; 83036; 83605; 83735; 83880; 83970; 84100; 84145; 84439; 84443; 84484; 85025; 87040; 87811; 92610; 93005; 96361; 96365; 96366; 96372; 96375; 96376; 99284; A4649; G0378; J0360; J0692; J0696; J1644; J1815; J2470; J3475; J3490; J7030; J7050; Q9967; A9270

== ENCOUNTER 2025-07-08 15:44 | Emergency (ER) | payer MEDICAID, SELFPAY ==
[2025-07-08 15:54] VITALS: PULSE 81; O2SAT 96
[2025-07-08 15:57] VITALS: BP 96/60; PULSE 92; RESP 16; TEMP 36.9; O2SAT 94
--- NOTE | 2025-07-08 16:20 | PD.EDCHEST ---
ED Chest Pain RME/HPI General Chief Complaint: Chest Pain Stated Complaint: CHEST PAIN Time Seen by Provider: 07/08/25 16:19 Arrival date/time: 07/08/25 15:44 RME / HPI RME / HPI narrative: See [facility] for Dr. Arreola's HPI documentation. Related Data Home Medications ?Medication ?Instructions ?Recorded ?Confirmed telmisartan 40 mg tablet (Micardis) 40 mg PO QDAY 05/23/25 05/23/25 Previous Rx's ?Medication ?Instructions ?Recorded magnesium citrate 150 ml PO QDAY PRN constipation 04/10/22 #296 mL Allergies Allergy/AdvReac Type Severity Reaction Status Date / Time No Known Allergies Allergy Verified 05/23/25 10:00 Review of Systems Review of Systems Systems Reviewed: All systems reviewed, normal except as documented Past Medical History Past Medical History CARDIAC: Positive Hypertension ENDOCRINE: Positive Diabetes Mellitus Type 2 (Pt states she takes pill for blood sugar, but is unsure what med it is.) Social History SMOKING STATUS: Unknown if ever smoked ED Exam Narrative Physical exam: See [facility] for Dr. Arreola's physical exam documentation. Course Quality Measures none Orders Category Date Time Status Bedside COVID-19 Antigen Test NOW Care 07/08/25 16:21 Active EKG (ED ONLY) *Do not use* NOW Care 07/08/25 16:23 Active Saline [Insert IV] NOW Care 07/08/25 16:21 Active Straight [In and Out Catheter] X1 Care 07/08/25 16:21 Active EKG (ED Only) Stat Exams 07/08/25 16:23 Ordered XR chest 1V portable Stat Exams 07/08/25 16:23 Taken BNP [B-Type Natriuretic Peptide] Stat Lab 07/08/25 16:45 Received Bilirubin,Direct Stat Lab 07/08/25 16:45 Completed CBC Stat Lab 07/08/25 16:45 Received CMP [Comprehensive Metabolic Panel] Stat Lab 07/08/25 16:45 Completed D-Dimer Stat Lab 07/08/25 16:45 Completed Influenza A & B Rapid Panel Stat Lab 07/08/25 16:21 Ordered Magnesium Stat Lab 07/08/25 16:45 Completed TSH [Thyroid Stimulating Hormone] Stat Lab 07/08/25 16:45 Completed Troponin I Stat Lab 07/08/25 16:45 Completed UA, C/S IF [Urinalysis, C/S if Indicated] Stat Lab 07/08/25 16:23 Ordered Morphine* Inj Med 07/08/25 16:22 Discontinued 1 mg IV X1 ONE Ondansetron Inj [Zofran Inj] Med 07/08/25 16:22 Discontinued 4 mg IVP X1 ONE Ringers Lactated 500 ml [Lactated Ringers] 500 ml Med 07/08/25 16:22 Discontinued IV 1,000 mls/hr Vital Signs Vital signs: Vital Signs Temperature 98.4 F 07/08/25 15:57 Pulse Rate 92 07/08/25 15:57 Respiratory Rate 16 07/08/25 15:57 Blood Pressure 96/60 07/08/25 15:57 Pulse Oximetry (%) 94 L 07/08/25 15:57 Oxygen Delivery Method Room Air 07/08/25 15:57 Pulse ox is 94% on room air which is adequate. Chest Pain MDM Narrative MDM Narrative:: This section includes all my notes and documentations, including HPI, PE, and ED course. Tom Arreola MD HPI: 80-year-old female here with chest pain since yesterday. Difficult obtaining details from the patient, possible dementia. Family not present. ROS: Can't obtain from the patient due to current clinical condition. Physical Exam: General: Alert. No acute distress when remaining still. Eyes: Conjunctivae and lids clear. ENT: No nasal congestion. Neck: Supple. Heart: RRR. Chest: Equivocal tenderness with palpation of anterior chest, left of the sternum. Lungs: No respiratory distress. Decreased air movement. N severe o rhonchi, wheezing, rales. Abdomen: Soft and nontender. Skin: Warm and dry. Neuro: Cranial Nerves II-XII grossly intact. No peripheral motor deficits. I reviewed EMS notes. I ordered IVF, Zofran 4 mg IV, morphine 1 mg IV, and diagnostic tests. At 6 PM on 07/08/2025, the care of the patient was transferred to Dr. Santana. Tom Arreola MD Patient data External records reviewed:: [facility] previous records and EMS form Clinical information provided by:: patient and EMS Social determinants that could affect healthcare access:: none Patient has the following chronic illnesses:: Hypertension, diabetes, dementia? How is presenting disease/condition affected by chronic disease/condition?: exacerbated by Evaluation data The following diagnostics were reviewed and interpreted by me:: other (specify) (Complete diagnostic tests are pending.) Lab and/or radiology exams considered but not ordered:: None Interpretation Summary: Complete diagnostic tests are pending. Medications / Prescriptions Medications or Prescriptions considered but not ordered:: None Medication administrations:: Medication Administration History Discontinued Medications Lactated Ringer's (Lactated Ringers) 500 mls @ 1,000 mls/hr IV .Q30M ONE Stop: 07/08/25 16:51 Last Admin: 07/08/25 16:48 Dose: 1,000 mls/hr Documented By: SANKET Comments: WE DO NOT CARRY 500ML LR BAGS, PUMP WAS SET TO INFUSE 500ML ONLY Morphine Sulfate (Morphine Sulf Inj 4 Mg/Ml Vial) 1 mg IV X1 ONE Stop: 07/08/25 16:23 Last Admin: 07/08/25 16:47 Dose: 1 mg Documented By: SANKET Ondansetron HCl (Ondansetron Inj 2 Mg/Ml Inj 2 Ml) 4 mg IVP X1 ONE; Protocol Stop: 07/08/25 16:23 Last Admin: 07/08/25 16:48 Dose: 4 mg Documented By: SANKET IV fluids Morphine 1mg IV Zofran 4mg IV Consultations Consultation(s) initiated? (list below): No Diagnosis Chest Pain Differential Diagnosis: pneumothorax, stable angina and atypical chest pain Most likely diagnosis given after review of the tests above:: Complete diagnostic tests are pending. Admission Indicated Admission indicated?: not indicated Explain why admission is indicated or not indicated:: Complete diagnostic tests are pending. Admission Request Was there a request for admission?: No Disposition Plan Disposition Plan: other (specify) (Care signed out to Dr. Santana at 6PM on 07/08/2025 ) Discharge Plan Prescriptions/Referrals Prescriptions/Med Rec: No Action magnesium citrate Solution 150 ml PO QDAY PRN (Reason: constipation) Qty: 296 0RF telmisartan [Micardis] 40 mg tablet 40 mg PO QDAY Problem List Clinical Impression: Chest pain Patient/Caregiver Discharge Instructions Print Language: Polish
--- NOTE | 2025-07-08 16:23 | EKG_ITS ---
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
--- NOTE | 2025-07-08 16:23 | XR_ITS ---
EXAMINATION: AP chest single view TECHNIQUE: AP portable upright chest single view Date and time: July 08, 2025, 1627 hours, comparison 05/23/2025 INDICATIONS: Shortness of breath chest pain today. 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
[2025-07-08 16:40] VITALS: BMI 16.8
[2025-07-08] MEDS: MORPHINE SULF INJ 4 MG/ML VIAL 1 MG IV (16:47)
[2025-07-08] MEDS: ONDANSETRON INJ 2 MG/ML INJ 2 ML 4 MG IVP (16:48)
[2025-07-08] MEDS: RINGERS LACTATED 500 ML 500 ML 1000 ML IV (16:48)
[2025-07-08 17:11] LABS: Basophils # (Auto) 0.0 Thou/mm3 (0.0-0.2); Basophils % (Auto) 1 % (0-2.5); Eosinophils # (Auto) 0.2 Thou/mm3 (0.0-0.5); Eosinophils % (Auto) 5 % (0-10); Hematocrit 36.0 % (36.0-46.0); Hemoglobin 11.8 g/dL (12.0-16.0); Immature Granulocytes Auto 0.00 Thou/mm3 (0.00-0.00); Lymphocytes # (Auto) 1.1 Thou/mm3 (1.0-4.8); Lymphocytes % (Auto) 23 % (10-50); Mean Corpuscular HGB Conc 32.8 g/dl (31.0-37.0); Mean Corpuscular Hemoglobin 28.9 pg (25.0-35.0); Mean Corpuscular Volume 88 fL (80-100); Monocytes # (Auto) 0.4 Thou/mm3 (0.0-0.8); Monocytes % (Auto) 9 % (0-12); Neutrophils # (Auto) 2.9 Thou/mm3 (1.8-7.7); Neutrophils % (Auto) 63 % (37-80); Nucleated Red Blood Cell # 0.00 Thou/mm3 (0.00-0.00); Nucleated Red Blood Cell % 0 /100 WBC (0); Platelet Count 185 Thou/mm3 (140-440); RDW Standard Deviation 44.1 fL (36.4-46.3); Red Blood Count 4.08 Miln/mm3 (4.00-5.20); White Blood Count 4.6 Thou/mm3 (3.6-11.0)
[2025-07-08 17:28] LABS: D-Dimer 289 ng/mL (<600)
[2025-07-08 17:32] LABS: Alanine Aminotransferase 12 U/L (10-49); Albumin, Serum 4.1 gm/dL (3.4-4.8); Albumin/Globulin Ratio 1.8 (1.2-2.2); Alkaline Phosphatase 144 U/L (46-116); Anion Gap 10 (7-16); Aspartate Amino Transferase 28 U/L (0-34); BUN/Creatinine Ratio 38 Ratio (12-20); Bilirubin,Direct 0.1 mg/dL (0.0-0.3); Bilirubin,Total 0.4 mg/dL (0.3-1.2); Blood Urea Nitrogen 23 mg/dL (9-23); Calcium 9.8 mg/dL (8.3-10.6); Calcium (Corrected) 9.8 mg/dL (8.5-10.1); Carbon Dioxide 24.1 mMol/L (20.0-31.0); Chloride 106 mMol/L (98-107); Creatinine (Component) 0.6 mg/dL (0.6-1.3); Estimated Creatinine Clearance 47.6 mL/min (>60); Globulin 2.3 gm/dL (2.3-3.5); Glucose 139 mg/dL (74-106); Magnesium 1.8 mg/dL (1.6-2.6); Osmolality,Calculated 285 (275-295); Potassium 4.6 mMol/L (3.4-5.1); Sodium 140 mMol/L (136-145); Thyroid Stimulating Hormone 1.33 uIU/mL (0.55-4.78); Total Protein 6.4 gm/dL (5.7-8.2); Troponin I < 0.020 ng/mL (0.0-0.045); eGFR > 60 See Note
[2025-07-08 17:39] LABS: B-Type Natriuretic Peptide 179 pg/mL (0-100)
--- NOTE | 2025-07-08 18:37 | PD.EDADDENDU ---
Emergency Room Addendum <Flores Trinidad - Last Filed: 07/08/25 21:16> Addendum Narrative: 1800: Care assumed from Dr. Arreola, the previous shift emergency physician. Past medical, surgical, social and family history reviewed. Vitals and home medications reviewed. Results and treatment plan discussed. I will assume the care of the patient at this time and will follow the patient. Please refer to the emergency department record for history and examination from initial visit. <Luke Santana DO - Last Filed: 07/08/25 21:20> Addendum Narrative: 1800: Care assumed from Dr. Arreola, the previous shift emergency physician. Past medical, surgical, social and family history reviewed. Vitals and home medications reviewed. Results and treatment plan discussed. I will assume the care of the patient at this time and will follow the patient. Please refer to the emergency department record for history and examination from initial visit. Patient was signed out to me awaiting labs. EKG showed no ischemic changes. Troponin is not elevated with a chest pain and been going on since the early hours of this morning, much greater than 3 hours. Chest x-ray shows evidence for bronchiectasis. This has been shown on previous chest x-rays and a CT scan of the chest dating back to May of this year. Patient denies any current chest pain pressure tightness or heaviness. She feels well and wishes to go home. Patient will be discharged in stable condition. Patient does have primary care follow-up. Patient is to return to the emergency room as needed or if condition worsens. D-dimer is not elevated.
[2025-07-08 19:09] LABS: Collection Type, Urine Clean Catch; Squamous Epithelial Cell,Urine 0 /hpf (0-5)
[2025-07-08 19:14] LABS: Bilirubin,Urine Negative (Negative); Blood,Urine Negative (Negative); Clarity,Urine Clear (Clear/Hazy); Color,Urine Lt-Yellow (Lt Yel-Yel); Culture Indicated,Urine Not Indicated; Glucose, Urine Negative (Negative); Ketones,Urine Negative (Negative); Leukocyte Esterase,Urine Negative (Negative); Nitrite,Urine Negative (Negative); PH,Urine 7.0 (5.0-7.0); Protein,Urine Negative (Neg - Trace); RBC,Urine 1 /hpf (0-3); Specific Gravity,Urine 1.013 (1.001-1.035); Urobilinogen,Urine Negative mg/dL (0.0-1.0); WBC,Urine 1 /hpf (0-5)
[2025-07-08 20:12] VITALS: BP 144/83; PULSE 81; RESP 17; TEMP 36.5; O2SAT 97
[2025-07-08 20:48] LABS: Influenza A Ag Negative; Influenza B Ag Negative
[2025-07-08 21:47] VITALS: PULSE 85; RESP 14; TEMP 37; O2SAT 99
== END 2025-07-08 21:57 | disposition home or self-care (01) ==
PROVIDERS: Emergency Provider Emergency Medicine; PCP Family Medicine
DX: R07.9 Chest pain, unspecified (principal)
CPT/HCPCS: 36415; 71045; 80053; 81001; 82248; 83735; 83880; 84443; 84484; 85025; 85379; 87502; 93005; 96374; 99284; J2270; J2405; J7120